=== PATIENT | male | born 1960 | race Caucasian/White ===

== ENCOUNTER 2022-07-27 11:06 | Inpatient (IN) | payer MEDICAID ==
[~2022-07-27] VITALS: Ht 180.3 cm; Wt 113.4 kg
--- NOTE | 2022-07-27 11:06 | NUR ---
Pt YENI via gurney to bed 10.
[2022-07-27 11:10] VITALS: BP 156/89
--- NOTE | 2022-07-27 11:45 | NUR ---
61M BIBA from [facility] with c/o cough for unknown time. Pt reports being Dx with PNA 7 days ago, productive cough with clear sputum. Pt taking Geritussin for cough with mild relief. Pt denies fevers, chills, SOB, CP upon assessment. Initial complaint was SOB, pt O2 96% on 2L NC. Pt changed into gown, placed on bedside monitor.
[2022-07-27 12:55] LABS: BASOPHILS % (AUTO) 0.5 % (0.0-2.0); EOSINOPHILS # (AUTO) 0.1 K/uL (0-0.4); EOSINOPHILS % (AUTO) 0.7 % (0.0-4.0); HEMATOCRIT 35.3 % (36-52); HEMOGLOBIN 11.7 g/dL (12.0-18.0); LYMPHOCYTES # (AUTO) 0.9 K/uL (2.0-11.5); LYMPHOCYTES % (AUTO) 9.1 % (20.5-51.1); MEAN CORPUSCULAR HEMOGLOBIN 27 pg (27-31); MEAN CORPUSCULAR HGB CONC 33 g/dL (33-37); MEAN CORPUSCULAR VOLUME 82.8 fL (80-94); MONOCYTES # (AUTO) 0.7 K/uL (0.8-1.0); NEUTROPHILS # (AUTO) 8.1 K/uL (1.8-7.7); NEUTROPHILS % (AUTO) 82.7 % (42.2-75.2); PLATELET COUNT (AUTO) 242 K/uL (140-450); RED BLOOD CELL COUNT(AUTO) 4.27 MIL/uL (4.20-6.10); RED CELL DISTRIBUTION WIDTH 14.2 % (11.6-13.7); WHITE BLOOD COUNT (AUTO) 9.8 K/uL (4.8-10.8)
[2022-07-27 13:12] LABS: ALBUMIN 2.4 g/dL (3.4-5.0); ANION GAP 15.1 (8-16); CARBON DIOXIDE 27.1 mmol/L (21-32); CREATININE 0.9 mg/dL (0.6-1.3); POTASSIUM 3.2 mmol/L (3.5-5.1); TOTAL BILIRUBIN 0.9 mg/dL (0.0-1.0)
[2022-07-27] MEDS ORDERED: AZITHROMYCIN 500 MG in DEXTROSE 5% 250 ML IV ONE (14:15)
[2022-07-27] MEDS ORDERED: FUROSEMIDE 40 MG/4 ML VIAL IVP SCH (14:15)
--- NOTE | 2022-07-27 14:20 | NUR ---
PER DR LACHELLE BEAR TO USE PICC/MIDLINE FROM FACILITY FOR MEDICATION
[2022-07-27] MEDS ORDERED: cefTRIAXone 1,000 MG VIAL ONE (14:30)
[2022-07-27] MEDS ORDERED: AZITHROMYCIN 500 MG INJ VIAL IV ONE (14:31)
[2022-07-27] MEDS ORDERED: MORPHINE SULFATE 2 MG/ML SYR IVP PRN (14:40)
[2022-07-27] MEDS ORDERED: MAG SULF 2000 MG/WATER PREMIX 50 ML IV PRN (14:40)
[2022-07-27] MEDS ORDERED: ZOLPIDEM 10 MG TAB PO PRN (14:40)
[2022-07-27] MEDS ORDERED: LORazepam 2 MG/ML VIAL IVP PRN (14:40)
[2022-07-27] MEDS ORDERED: DOCUSATE SODIUM 100 MG GELCAP PO PRN (14:40)
[2022-07-27] MEDS ORDERED: ONDANSETRON 4 MG/2 ML VIAL IVP PRN (14:40)
[2022-07-27] MEDS ORDERED: ACETAMINOPHEN 325 MG TAB PO PRN (14:40)
[2022-07-27] MEDS ORDERED: INSULIN LISPRO SLIDING SCALE 100 UNITS/ML VIAL SUBQ PRN (14:45)
[2022-07-27] MEDS ORDERED: DEXTROSE 50% 50 ML SYR IVP PRN (14:45)
--- NOTE | 2022-07-27 14:57 | NUR ---
DR FARMER AT BEDSIDE
[2022-07-27] MEDS: POTASSIUM CHLORIDE 10 MEQ TABER PO PRN (14:59)
[2022-07-27 16:01] LABS: APPEARANCE,URINE CLEAR (CLEAR); BILIRUBIN,URINE NEGATIVE (NEGATIVE); BLOOD, URINE TRACE-I (NEGATIVE); COLOR,URINE YELLOW (YELLOW); LEUKOCYTE ESTERASE ,URINE NEGATIVE (NEGATIVE); NITRITE, URINE NEGATIVE (NEGATIVE); UGLUCOSE NEGATIVE (NEGATIVE)
[2022-07-27 16:16] LABS: RBC,URINE 0-5 /HPF (0-5); WBC,URINE NONE SEEN /HPF (0-5)
[2022-07-27] MEDS ORDERED: DILTIAZEM 25 MG/5 ML VIAL IVP ONE (16:19)
[2022-07-27] MEDS: BLOOD GLUCOSE MONITORING 1 DEV DEV FS SCH ×2 (16:30→21:41)
[2022-07-27] MEDS ORDERED: DILTIAZEM 125 MG in DEXTROSE 5% 100 ML IV SCH (16:40)
[2022-07-27] MEDS ORDERED: DILTIAZEM 25 MG/5 ML VIAL IVP SCH (17:00)
[2022-07-27] MEDS ORDERED: RIVA15TA1 PO (17:51)
[2022-07-27] MEDS ORDERED: GABA400C PO (17:51)
[2022-07-27] MEDS ORDERED: METO25TE2 PO (17:51)
[2022-07-27] MEDS ORDERED: AMLO10TA PO (17:51)
--- NOTE | 2022-07-27 18:22 | NUR ---
Patient will be admitted to care of Dr. Quintanilla. Admited to ICU. Will go to room ICU 5. Belongings list completed. Report to SHERRI Nuno.
--- NOTE | 2022-07-27 18:30 | NUR ---
ADMISSION FROM ER TO ICU BED 5 PATIENT WAS WHEELED IN BY STRETCHER BY SHERRI RUBIO FROM ER AT 1830HRS, NO REPORT GIVEN PRIOR. CONSCIOUS, CALM, ORIENTED X4 ( PER REPORT BY JOANNE). CARDIZEM DRIP AT 10 MG/HR BY RIGHT UPPER ARM 2-LUMEN PICC. ATRIAL FIBRILLATION ON MONITOR, HR AT 148/MINUTE. 2LPM/NASAL CANNULA O2. GIVEN CARDIZEM 10 MG IVP X 1, ATIVAN 2 MG IVP X 1 IN ED. AFEBRILE. PT.CAME TO ED AT 1440 HRS. TODAY FROM [facility], BROUGHT BY AMBULANCE. Addendum: 07/27/22 at 1918 by Agency 06 SHERRI POLANCO PER SHERRI RUBIO, DR. PRICE WAS INFORMED AT 1815 HRS. THAT THE HR WAS STILL HIGH AT 100s, WILL ORDER METOPROL AND DIGOXIN, NOT IN THE EMR YET AT 1905 HRS.
[2022-07-27 18:55] VITALS: BP 134/89
[2022-07-27] MEDS ORDERED: DIGOXIN 0.25 MG/ML AMP IV SCH (19:00)
--- NOTE | 2022-07-27 19:00 | NUR ---
190: REC'D PT FROM SHERRI GARCIA TO ADMIT THE PT. PT WAS ARRIED AT THE UNIT 1830 PER REPORT. PT'S A/OX3, THIS TIME, DROWSY, AFIB HR 140'S ON CARDIZEM DRIP AT 15MG INFUSING ON THE HOLDEN PICCLINE PATENT AND INTACT.. ON 2LITERS 02 VIA NC SATS >95%. SBP 114-120'S ON DIAPER, SOILED AND SOAKING WET. TEMP 100.2, SWEATING, REMOVED ALL BLANKETS AND APPLIED COOLING MEASURES, COLD FACE CLOTH AND COLD TOWEL TO WIPE OFF THE BODY. 1919: GIVEN DUE MEDS AND TYLENOL FOR TEMP 100.2
[2022-07-27] MEDS: METOPROLOL 25 MG TAB PO SCH (19:39)
--- NOTE | 2022-07-27 19:50 | NUR ---
PHONE CALL TO DR FARMER RE; PULMO ENGROSSER CONSULT, PHYSICIAN SAID TO CONSULT DR COBURN, ALSO ORDERED TO INSERT KAYE CATHETER.JAYANT Corley RN AWARE
--- NOTE | 2022-07-27 19:54 | NUR ---
PAGED DR COBURN FOR NEW ADMISSION, SPOKE WITH MD AND SHE SAID ALREADY SAW THE PT IN ER.
[2022-07-27 20:00] VITALS: BP 140/84
[2022-07-27 21:00] VITALS: BP 108/62
[2022-07-27] MEDS ORDERED: METOPROLOL 25 MG TAB PO SCH (21:00)
[2022-07-27 22:00] VITALS: BP 106/64
[2022-07-27 23:00] VITALS: BP 93/60
[2022-07-28] VITALS (16 sets, daily range): BP systolic 92–135; BP diastolic 55–85
[2022-07-28] MEDS: METOPROLOL 25 MG TAB PO SCH ×2 (04:48→12:15)
[2022-07-28 06:11] LABS: BASOPHILS # (AUTO) 0.1 K/uL (0.00-0.22); BASOPHILS % (AUTO) 0.6 % (0.0-2.0); EOSINOPHILS # (AUTO) 0.1 K/uL (0-0.4); EOSINOPHILS % (AUTO) 1.2 % (0.0-4.0); HEMATOCRIT 36.5 % (36-52); LYMPHOCYTES # (AUTO) 1.5 K/uL (2.0-11.5); LYMPHOCYTES % (AUTO) 16.2 % (20.5-51.1); MEAN CORPUSCULAR HEMOGLOBIN 27 pg (27-31); MEAN CORPUSCULAR HGB CONC 33 g/dL (33-37); MONOCYTES # (AUTO) 0.8 K/uL (0.8-1.0); MONOCYTES % (AUTO) 8.6 % (1.7-9.3); NEUTROPHILS # (AUTO) 6.9 K/uL (1.8-7.7); NEUTROPHILS % (AUTO) 73.4 % (42.2-75.2); PLATELET COUNT (AUTO) 243 K/uL (140-450); RED CELL DISTRIBUTION WIDTH 14.8 % (11.6-13.7); WHITE BLOOD COUNT (AUTO) 9.4 K/uL (4.8-10.8)
--- NOTE | 2022-07-28 06:48 | NUR ---
NO SIGNIFICANT CHANGES FROM PREVIOUS SHIFT ASSESSMENT. A/OX4, DENIES PAIN. HAS C/O PENILE PAIN WHEN IRRIGATED. 150CC OUTPUT YELLOW COLOR. HAD GIVE 2X BATH . PT'S SWEATS A LOT, AFEBRILE. PT'S HR TO LOW 60'S, SBP LOW 100'S. LOPRESSOR WAS GIVEN PO, JC WELL, NO SWALLOWING PROBLEM. AT TIMES PT'S GETS EASILY IRRITATED DURING ACTIVITIES/TURNING AND REPOSITIONED. POC DISCUSSED. SPOKE TO PT'S BROTHER GREG AROUND 2100, UPDATES GIVEN AND TELLING THE PT TO LISTEN AND BE NICE TO STAFF. WILL ENDORSE TO AM SHERRI SIEGEL TO ASSUME PLAN OF CARE.
[2022-07-28 07:02] LABS: ANION GAP 13.1 (8-16); CARBON DIOXIDE 30.4 mmol/L (21-32); POTASSIUM 3.5 mmol/L (3.5-5.1)
[2022-07-28] MEDS: BLOOD GLUCOSE MONITORING 1 DEV DEV FS SCH ×4 (07:33→21:00)
--- NOTE | 2022-07-28 07:45 | NUR ---
Received pt alert and oriented x4. On 2L via nasal cannula. A. Fib on monitor. Abd with active bowel sounds. Arzola catheter intact and patent. PICC line on HOLDEN intact and saline locked. Received report from special effects makeup artist nurse rubio miranda off since 0000. Call light within reach. Safety precautions in place.
--- NOTE | 2022-07-28 08:36 | NUR ---
Seen and examined by Dr. Vasquez. New order to remove mcgraw catheter and downgrade to tele. Addendum: 07/28/22 at 1039 by Karime Corbett RN New order to repeat CXR.
[2022-07-28] MEDS ORDERED: lisinopriL 20 MG TAB PO SCH (09:00)
[2022-07-28] MEDS ORDERED: FUROSEMIDE 40 MG/4 ML VIAL IVP SCH (09:00)
[2022-07-28] MEDS: AZITHROMYCIN 500 MG in DEXTROSE 5% 250 ML IV SCH (09:50)
--- NOTE | 2022-07-28 10:28 | NUR ---
PATIENT HAS BEEN SCREENED AND CATEGORIZED MODERATE NUTRITION RISK. PATIENT WILL BE SEEN WITHIN 3-5 DAYS OF ADMISSION. 07/30/2212/11/[address]
--- NOTE | 2022-07-28 10:39 | NUR ---
Pt had small soft brown BM. Pericare rendered. Turned and repositioned. Pt tolerated well.
--- NOTE | 2022-07-28 11:30 | NUR ---
CXR done at bedside.
[2022-07-28] MEDS: Z-GUARD PASTE TP SCH (12:16)
--- NOTE | 2022-07-28 13:02 | NUR ---
Seen and examined by Dr. Sung. No new orders.
--- NOTE | 2022-07-28 14:05 | NUR ---
Seen and examined by Dr. Irene. No new orders.
[2022-07-28] MEDS: FUROSEMIDE 20 MG/2 ML VIAL IVP SCH (17:55)
--- NOTE | 2022-07-28 19:12 | NUR ---
Endorsed to night cleaner nurse Suad for continuity of care.
--- NOTE | 2022-07-28 19:19 | NUR ---
REC'D PT FROM SHERRI SIEGEL TO ASSUME PLAN OF CARE. PT'S A/OX4, DENIES PAIN. USES URINAL TO VOID, YELLOW CLEAR COLOR. POOR APPETITE. DINNER TRAY STILL IN FRONT OF THE PT, ASKED TO EAT MORE, BUT REFUSED. SBP IN THE LOW 100'S AFIB, CONTROLLED HR IN THE 80'S. NO RESP DISTRESS, NO COUGH AND NO SOB. ON 2 LITERS 02 VIA NC SATS >95%. POC DISCUSSED. FOR TELE TRANSFER, ROOM 106B SAFETY AND SKIN PROTOCOL ON PROGRESS. CONTINUE MONITOR.
--- NOTE | 2022-07-28 19:50 | NUR ---
1950: REPORT GIVEN TO COMMUNITY ADMINISTRATORSHERRI TOLEDO TO ASSUME PLAN OF CARE. PT TRANSFERRED BY AM FLOOR CARE TECHNICIAN LEO AND PM FLOOR CARE TECHNICIANSHERRI ESCALERA TO TELE ROOM 106B. ALL BELONGINGS WITH THE PT. NOTIFIED PT'S EMERGENCY PHYSICAL INSTRUCTOR/BROTHER GREG GAONA.
[2022-07-28] MEDS: METOPROLOL 50 MG TAB PO SCH (22:10)
--- NOTE | 2022-07-28 22:16 | NUR ---
1900: Patient is awake, alert able to follow simple command. Currently on HF cannula saturation 98. No acute respiratory distress at this time. Comfort and safety measure provided. Bed close to nursing station. 1999: Discussed with technical service specialist on patient readiness for CT with contrast. 2099: Trial patient off HF with saturation 93. 2144: RT was notified of patient status off HF. [place] applied patient saturation currently at 97, no acute distress. 2224: Attempts made my several RN to established secure upper arm IV access for CT angio. Addendum: 07/28/22 at 2222 by Agency Nurse 17, RN RN DOC. ERROR, PLEASE DISREGUARD THIS NOTE
--- NOTE | 2022-07-28 22:25 | NUR ---
1939: Report received via telephone from Suad POLANCO 1999: Patient arrived on unit. Patient A/O x4 able to follow command, no acute distress noted. Patient deny pain or discomfort. Patient belonging included a cell, phone, charging cable and article of clothing. Patient report all belonging are accounted for. Right upper arm PICC intact and patent. Educate patient on plan of care and use of call light, patient verbalized understanding.
[2022-07-29] MEDS: Z-GUARD PASTE TP SCH ×2 (01:28→13:32)
[2022-07-29 04:00] VITALS: BP 135/88
[2022-07-29] MEDS: BLOOD GLUCOSE MONITORING 1 DEV DEV FS SCH ×4 (06:37→20:57)
[2022-07-29 07:49] LABS: BASOPHILS % (AUTO) 0.5 % (0.0-2.0); EOSINOPHILS # (AUTO) 0.2 K/uL (0-0.4); EOSINOPHILS % (AUTO) 1.9 % (0.0-4.0); HEMATOCRIT 37.4 % (36-52); HEMOGLOBIN 12.5 g/dL (12.0-18.0); LYMPHOCYTES # (AUTO) 1.2 K/uL (2.0-11.5); MEAN CORPUSCULAR HEMOGLOBIN 28 pg (27-31); MEAN CORPUSCULAR HGB CONC 33 g/dL (33-37); MEAN CORPUSCULAR VOLUME 82.6 fL (80-94); MONOCYTES # (AUTO) 0.6 K/uL (0.8-1.0); MONOCYTES % (AUTO) 7.1 % (1.7-9.3); NEUTROPHILS # (AUTO) 6.7 K/uL (1.8-7.7); NEUTROPHILS % (AUTO) 76.5 % (42.2-75.2); PLATELET COUNT (AUTO) 253 K/uL (140-450); RED BLOOD CELL COUNT(AUTO) 4.53 MIL/uL (4.20-6.10); RED CELL DISTRIBUTION WIDTH 14.7 % (11.6-13.7); WHITE BLOOD COUNT (AUTO) 8.8 K/uL (4.8-10.8)
[2022-07-29 08:00] VITALS: BP 147/89
[2022-07-29 08:10] LABS: ANION GAP 15.7 (8-16); CARBON DIOXIDE 28.5 mmol/L (21-32); POTASSIUM 3.2 mmol/L (3.5-5.1)
[2022-07-29] MEDS: METOPROLOL 50 MG TAB PO SCH ×2 (09:57→20:52)
[2022-07-29] MEDS: RIVAROXABAN 10 MG TAB PO SCH (09:57)
[2022-07-29] MEDS: FUROSEMIDE 20 MG/2 ML VIAL IVP SCH ×2 (09:58→17:00)
[2022-07-29] MEDS: AZITHROMYCIN 500 MG in DEXTROSE 5% 250 ML IV SCH (09:59)
[2022-07-29] MEDS: POTASSIUM CHLORIDE 10 MEQ TABER PO PRN (10:02)
[2022-07-29 12:00] VITALS: BP 151/89
--- NOTE | 2022-07-29 14:20 | NUR ---
PT. WITH LOW JOSLYN SCALE AT MODERATE TO HIGH RISK, CONTINUE TO FOLLOW PRESSURE INJURY PREVENTION INTERVENTIONS. -POSITIONING: TURN AND REPOSITION PATIENT Q 2H OR SOONER USE PILLOWS TO KEEP BONY PROMINENCES FROM DIRECT CONTACT WITH SURFACES USE REPOSITIONING WEDGES TO PROVIDE 30-DEGREE ANGLE FOR SIDE LYING POSITIONS OFFLOADING OR FOAM DRESSING TO ALL TUBING TO PREVENT MEDICAL DEVICES RELATED PRESSURE INJURY -RE-EVALUATING AND MANAGING INCONTINENCE MONITOR SKIN CONDITION DURING POSITION CHANGE DO NOT MASSAGE REDNESS, BONY PROMINENCES FREQUENT JAKI-CARE AND PROVIDE BARRIER CREAMS PRN IF SOILING MOISTURE CONTROL BY OFFER BED WILEY/URINAL /ABSORBENT PAD TO WICK AND HOLD MOISTURE KEEP SKIN DRY AND PROTECT FROM FRICTION -MANAGE FRICTION/SHEAR/MOBILITY KEEP HOB AT THE LOWEST LEVEL OF ELEVATION NO MORE THAN 30 DEGREE UNLESS OTHERWISE CONTRAINDICATED USE LIFT SHEET OR TRANSFER DEVICE TO MOVE PATIENT AND PREVENT LATERAL SHEER. PROTECT HEELS, ELBOWS BONY PROMINENCES WITH SKIN BERRIES OR FOAM DRESSING IF EXPOSED TO FRICTION OFFLOAD BILATERAL HEELS BY PLACING PILLOWS UNDER CALVES AT ALL TIMES, UNLESS OTHERWISE CONTRAINDICATED -PRESSURE REDISTRIBUTION SURFACE THERAPY ORI ISOFLEX MATTRESS -NUTRITION: PLEASE FOLLOW RD RECOMMENDATIONS AND OFFER NUTRITION SUPPLEMENTS IF ORDERED. PLEASE CONTACT WOUND CARE NURSE FOR ANY QUESTION AND CHANGE OF WOUND CONDITION
--- NOTE | 2022-07-29 14:44 | NUR ---
DC PLANNING SW MET WITH PT AT BEDSIDE TO COMPLETE ASSESSMENT. PT REPORTS CURRENTLY BEING WITH [facility] UNDER SKILLED CARE SINCE 07/07/22. PT REPORTS HE WAS RECEIVING ANTIBIOTICS AND PT AT FACILITY. PT REPORTS PREVIOUS TO SKILLED CARE RESIDING AT [facility] IN [place]. PT IDENTIFIED GREG GAONA, BROTHER, EMERGENCY CONTACT. PT DENIED AD IN PLACE AND DECLINED AD OFFERED BY SW. PT REPORTS MEDICATION COMPLIANCE AND REPORTS THAT MEDIATION IS ADMINISTERED BY [facility] STAFF. PT REPORTS UTILIZING FWW AND REQUIRES ASSISTANCE WITH ADL'S, HOWEVER, PT REPORTS AT BASELINE HE CAN COMPLETE ADL'S INDEPENDENTLY. PT REPORTS DC PLAN IS TO RETURN TO [facility] ONCE MEDICALLY STABLE. SW INQUIRED ON RESOURCES NEEDED, PT DECLINED. Addendum: 07/29/22 at 1445 by Ayden Oliva Amended: Links added.
[2022-07-29 16:00] VITALS: BP 143/95
[2022-07-29 20:00] VITALS: BP 138/76
--- NOTE | 2022-07-29 20:07 | NUR ---
ENDORSE PATIENT TO PM SHIFT NURSE WHILE PATIENT REST IN BED STABLE, PICC HOLDEN SALINE LOCK
--- NOTE | 2022-07-29 20:08 | NUR ---
RECEIVED REPORT FROM MORNING SHIFT NURSE. PT IS AOX4, LYING ON THE BED ON BED REST. PT IS ABLE TO VERBALIZE NEEDS AND FOLLOW COMMANDS. PT IS ON REGULAR DIET AND ON ROOM AIR. PT HAS URINAL ON BEDSIDE. PT HAS RIGHT UPPER ARM PICC LINE DOUBLE LUMEN ON SALINE LOCKED. PT HAS INCONTINENT DERMATITIS ON BUTTOCKS, PERINEAL, SCROTAL AND GROIN. PT DENIES PAIN AT THIS TIME AND NO S/S RESPIRATORY DISTRESS NOTED. ALL SAFETY MEASURES IMPLEMENTED. BED IN LOW POSITION, BED WHEELS ON LOCKED AND CALL LIGHT WITHIN REACH.
--- NOTE | 2022-07-29 20:52 | NUR ---
SCHEDULED AND PRESCRIBED MEDICATION WAS GIVEN TO PT. ALL SAFETY MEASURES IMPLEMENTED. BED IN LOW POSITION, BED WHEELS ON LOCKED AND CALL LIGHT WITHIN REACH.
--- NOTE | 2022-07-29 20:57 | NUR ---
BLOOD GLUCOSE OF PT IS 131. NO INSULIN COVERAGE NEEDED.
[2022-07-30] VITALS: BP 141/90
--- NOTE | 2022-07-30 | NUR ---
PT IS SLEEPING. CHEST RISE AND FALL SYMMETRICALLY NOTED. RESPIRATION IS EVEN AND UNLABORED. ALL SAFETY MEASURES IMPLEMENTED. BED IN LOW POSITION, BED WHEELS ON LOCKED AND CALL LIGHT WITHIN REACH.
[2022-07-30] MEDS: Z-GUARD PASTE TP SCH ×2 (01:00→13:00)
--- NOTE | 2022-07-30 02:00 | NUR ---
PT TOLD ME TO DO THE MRSA SWAB LATER IN THE MORNING BECAUSE HE WANTS TO SLEEP.
[2022-07-30 04:00] VITALS: BP 140/85
--- NOTE | 2022-07-30 04:00 | NUR ---
MORNING CARE TO PT WAS DONE. CHANGED LINENS, CHUCKS AND GOWN. ALL SAFETY MEASURES IMPLEMENTED. BED IN LOW POSITION, BED WHEELS ON LOCKED AND CALL LIGHT WITHIN REACH.
[2022-07-30] MEDS: BLOOD GLUCOSE MONITORING 1 DEV DEV FS SCH ×4 (06:36→21:10)
--- NOTE | 2022-07-30 06:36 | NUR ---
PT BLOOD GLUCOSE IS 125. NO INSULIN COVERAGE NEEDED.
--- NOTE | 2022-07-30 07:18 | NUR ---
PT IS STABLE. ENDORSED PT TO MORNING SHIFT NURSE FOR CONTINUITY OF CARE.
[2022-07-30 07:47] LABS: BASOPHILS % (AUTO) 0.8 % (0.0-2.0); EOSINOPHILS # (AUTO) 0.1 K/uL (0-0.4); HEMATOCRIT 39.5 % (36-52); HEMOGLOBIN 13.1 g/dL (12.0-18.0); LYMPHOCYTES # (AUTO) 1.7 K/uL (2.0-11.5); LYMPHOCYTES % (AUTO) 29.8 % (20.5-51.1); MEAN CORPUSCULAR HEMOGLOBIN 28 pg (27-31); MEAN CORPUSCULAR HGB CONC 33 g/dL (33-37); MEAN CORPUSCULAR VOLUME 82.8 fL (80-94); MONOCYTES # (AUTO) 0.6 K/uL (0.8-1.0); MONOCYTES % (AUTO) 9.6 % (1.7-9.3); NEUTROPHILS # (AUTO) 3.4 K/uL (1.8-7.7); NEUTROPHILS % (AUTO) 58.8 % (42.2-75.2); PLATELET COUNT (AUTO) 279 K/uL (140-450); RED BLOOD CELL COUNT(AUTO) 4.77 MIL/uL (4.20-6.10); RED CELL DISTRIBUTION WIDTH 14.4 % (11.6-13.7); WHITE BLOOD COUNT (AUTO) 5.8 K/uL (4.8-10.8)
[2022-07-30 08:00] VITALS: BP 145/94
[2022-07-30] MEDS: AZITHROMYCIN 500 MG in DEXTROSE 5% 250 ML IV SCH (08:32)
[2022-07-30 08:53] LABS: ANION GAP 16.5 (8-16); CARBON DIOXIDE 29.2 mmol/L (21-32); POTASSIUM 3.7 mmol/L (3.5-5.1)
[2022-07-30] MEDS: RIVAROXABAN 10 MG TAB PO SCH (09:38)
[2022-07-30] MEDS: METOPROLOL 50 MG TAB PO SCH ×2 (09:39→21:10)
[2022-07-30] MEDS: FUROSEMIDE 20 MG/2 ML VIAL IVP SCH ×2 (09:39→16:59)
[2022-07-30 12:00] VITALS: BP 134/88
[2022-07-30] MEDS ORDERED: XAR10 PO (13:59)
[2022-07-30] MEDS ORDERED: FURO-570 PO (13:59)
[2022-07-30] MEDS ORDERED: METO50TA99 PO (13:59)
[2022-07-30] MEDS ORDERED: POTA10TA70 PO (14:00)
--- NOTE | 2022-07-30 14:42 | NUR ---
DC PLANNING: RECEIVED DC ORDER. ORDER AND CLINICALS SENT TO [place]. UBALDO PENA OF [facility] [phone], INFORMED OF DC ORDER AND REQUESTED FOR TRANSPORT AUTHORIZATION. IHSAN PENA PROVIDED THIS CM WITH TRANSPORT AUTH [id number] AND CAN US HELPING HAND, SECURE OR DL TRANSPORTATION. PER AMADO OF [place] [phone], THEY ARE IN THE PROCESS OF ROOM CHANGES DUE TO THEY HAVE FLU AND COVID OUTBREAK. PER AMADO, SHE WILL INFORM UBALDO MCNEILL ONCE BED IS AVAILABLE. UBALDO MCNEILL INFORMED.
[2022-07-30 16:00] VITALS: BP 143/95
--- NOTE | 2022-07-30 19:35 | NUR ---
RECEIVED REPORT FROM ORTEGA POLANCO, PATIENT WAS STABLE DURING SHIFT REPORT. PATIENT IS ALERT ORIENT X 4. AWARE OF DISCHARGE ORDERS AND WILL LEAVE TO [facility] WHEN A BED IS AVAILABLE. PATIENT WAS DOWNGRADED TO MED/SURG AND NURSING WILL ENSURE THE TELEMONITOR BE RETURNED TO TEACHER'S AIDE. PATIENT WAS KEPT CLEAN AND DRY. IT WAS REPORTED HE HAD A BOWEL MOVEMENT TODAY. PATIENT HAS IV FLUID TO KEEP THE VEIN OPEN. BED AT THE LOWEST LEVEL TO PREVENT FALL. SIDE RAILS UP X 2 FOR SAFETY AND ADJUSTMENT. CALL LIGHT WITHIN REACH FOR ASSISTANCE. [email or web address]
[2022-07-30 20:00] VITALS: BP 135/79
--- NOTE | 2022-07-30 23:06 | NUR ---
PATIENT IN BED WATCHING TV. NON NOTED S/S OF PAIN/DISCOMFORT. PATIENT DENIES ANY RESPIRATORY DISTRESS. KEPT CLEAN AND DRY. SIDE RAILS UP X 3 FOR SAFETY AND ADJUSTMENTS. CALL LIGHT WITHIN REACH. [email or web address]
[2022-07-31] MEDS: Z-GUARD PASTE TP SCH ×2 (01:05→13:05)
--- NOTE | 2022-07-31 01:16 | NUR ---
PATIENT IS IN BED ASLEEP. NO NOTED S/S OF PAIN/DISCOMFORT. NO NOTED RESPIRATORY DISTRESS. SIDE RAILS UP X 3 FOR SAFETY. CALL LIGHT WAS WITHIN REACT. [email or web address]
[2022-07-31 04:00] VITALS: BP 119/77
--- NOTE | 2022-07-31 05:09 | NUR ---
PATIENT WAS SLEEPING BUT WAS RESPOPNSIVE TO NAME. PATIENT DID NOT URINE MUCH, 200ML ALL NIGHT. NURSING HAVE EDUCATION TO DRINK WATER TOLERATED. URINE NOTED A YELLOWISH BROWN WITHOUT SENTIMENTS. PATIENT STATED HE DIS NOT HAVE A BOWEL MOVEMENT AND REFUSED FOR NURSE TO CHANGE HIM AT THIS TIME. HE WILL CALL IF AND WHEN HE NEEDS TO BE CHANGED. CALL LIGHT WITHIN REACH FOR ASSISTANCE. SIDE RAILS UP X 3. [email or web address]
[2022-07-31] MEDS: BLOOD GLUCOSE MONITORING 1 DEV DEV FS SCH ×4 (06:51→20:30)
--- NOTE | 2022-07-31 06:58 | NUR ---
ENDORSED PATIENT TO YUMI RN, PATIENT WAS STABLE DURING SHIFT REPORT. [email or web address]
[2022-07-31 07:15] LABS: BASOPHILS # (AUTO) 0.1 K/uL (0.00-0.22); BASOPHILS % (AUTO) 1.1 % (0.0-2.0); EOSINOPHILS # (AUTO) 0.1 K/uL (0-0.4); EOSINOPHILS % (AUTO) 1.2 % (0.0-4.0); HEMATOCRIT 40.5 % (36-52); HEMOGLOBIN 13.4 g/dL (12.0-18.0); LYMPHOCYTES # (AUTO) 2.1 K/uL (2.0-11.5); LYMPHOCYTES % (AUTO) 27.7 % (20.5-51.1); MEAN CORPUSCULAR HEMOGLOBIN 27 pg (27-31); MEAN CORPUSCULAR HGB CONC 33 g/dL (33-37); MEAN CORPUSCULAR VOLUME 82.6 fL (80-94); MONOCYTES # (AUTO) 0.7 K/uL (0.8-1.0); NEUTROPHILS # (AUTO) 4.6 K/uL (1.8-7.7); PLATELET COUNT (AUTO) 299 K/uL (140-450); RED CELL DISTRIBUTION WIDTH 14.4 % (11.6-13.7); WHITE BLOOD COUNT (AUTO) 7.6 K/uL (4.8-10.8)
[2022-07-31 07:55] LABS: ANION GAP 15.4 (8-16); CARBON DIOXIDE 28.7 mmol/L (21-32); POTASSIUM 3.1 mmol/L (3.5-5.1)
[2022-07-31 08:00] VITALS: BP 139/91
[2022-07-31] MEDS: AZITHROMYCIN 500 MG in DEXTROSE 5% 250 ML IV SCH (09:00)
[2022-07-31] MEDS: METOPROLOL 50 MG TAB PO SCH ×2 (09:07→20:31)
[2022-07-31] MEDS: RIVAROXABAN 10 MG TAB PO SCH (09:09)
--- NOTE | 2022-07-31 09:12 | NUR ---
SCHEDULED MEDS ADMIN. PT TOLERATED WELL.
[2022-07-31] MEDS ORDERED: POTASSIUM CHLORIDE 10 MEQ TABER PO SCH (09:13)
--- NOTE | 2022-07-31 11:32 | NUR ---
BS CHECK WAS DONE. BS AT 2OO. INFORMED PT HE WOULD NEED INSULIN COVERAGE. PT YELLED "WHY? I'VE BEEN EATING WHAT I'VE GOT. I DON'T WANT INSULIN." PT TEACHING REGARDING BS MANAGEMENT PT REFUSED.
--- NOTE | 2022-07-31 12:53 | NUR ---
07/31/22 RD INITIAL ASSESSMENT COMPLETED PLEASE REFER TO NUTRITION ASSESSMENT UNDER CARE ACTIVITY FOR ESTIMATED NUTRITIONAL NEEDS. 1. RECOMMEND [facility] 60GM DIET TOLERATED -MONITOR BLOOD GLUCOSE LEVELS 2. OFFERED ORAL SUPPLEMENTS; PT DECLINED 3. RD TO FOLLOW-UP 7 DAYS, LOW RISK [address]
[2022-07-31 16:00] VITALS: BP 132/89
--- NOTE | 2022-07-31 17:10 | NUR ---
BS CHECK DONE. BS LEVEL 107. NO COVERAGE NEEDED.
--- NOTE | 2022-07-31 19:41 | NUR ---
ENDORSED PT TO CRUSHER TENDER NURSE FOR CONTINUITY OF CARE. ALL NEEDS MET THROUGHOUT SHIFT. PT IN STABLE CONDITION.
[2022-07-31 20:00] VITALS: BP 136/81
--- NOTE | 2022-07-31 20:22 | NUR ---
GET THE REPORT FROM MORNING NURSE, PATIENT IS LYING ON BED, PATIENT IS ALERT ORIENTED X4, ALL FALL PRECAUTION MEASURE ARE IN PLACE, CALL LIGHT IS WITHIN THE REACH, WILL CONTINUE TO MONITOR PATIENT.
--- NOTE | 2022-07-31 20:23 | NUR ---
PATIENT IS LYING ON BED, NO ANY COMPLAIN OF PAIN OR SHORTNESS OF BREATH AT THIS TIME, VITAL SIGN IS WITHIN THE NORMAL RANGE, PATIENT REFUSED TO CHECK BLOOD SUGAR AT THIS TIME, ALL OTHER MEDICATION IS GIVEN PER DOCTOR ORDER, CALL LIGHT IS WITHIN THE REACH, WILL CONTINUE TO MONITOR PATIENT.
--- NOTE | 2022-08-01 00:18 | NUR ---
PATIENT IS LYING ON BED, HELP THE PATIENT TO USE BEDSIDE COMMODE, NO ANY COMPLAIN OF PAIN OR SHORTNESS OF BREATH AT THIS TIME, CALL LIGHT IS WITHIN THE REACH, WILL CONTINUE TO MONITOR PATIENT.
[2022-08-01] MEDS: Z-GUARD PASTE TP SCH (01:07)
[2022-08-01 04:00] VITALS: BP 119/75
--- NOTE | 2022-08-01 04:20 | NUR ---
PATIENT IS LYING ON BED, NO ANY COMPLAIN OF PAIN OR SHORTNESS OF BREATH AT THIS TIME, VITAL SIGN IS WITHIN THE NORMAL RANGE,CALL LIGHT IS WITHIN THE REACH, WILL CONTINUE TO MONITOR PATIENT.
[2022-08-01] MEDS: BLOOD GLUCOSE MONITORING 1 DEV DEV FS SCH (06:31)
--- NOTE | 2022-08-01 07:01 | NUR ---
PATIENT IS REFUSING TO CHECK BLOOD SUGAR AT THIS TIME,.
--- NOTE | 2022-08-01 07:02 | NUR ---
GAVE THE REPORT TO MORNING NURSE FOR CONTINUOS OF CARE, PATIENT IS STABLE.
[2022-08-01 07:06] LABS: ANION GAP 12.1 (8-16); CREATININE 1.2 mg/dL (0.6-1.3); POTASSIUM 4.1 mmol/L (3.5-5.1)
[2022-08-01 08:03] LABS: BASOPHILS # (AUTO) 0.1 K/uL (0.00-0.22); BASOPHILS % (AUTO) 1.1 % (0.0-2.0); EOSINOPHILS # (AUTO) 0.1 K/uL (0-0.4); EOSINOPHILS % (AUTO) 1.3 % (0.0-4.0); HEMATOCRIT 43.8 % (36-52); HEMOGLOBIN 14.2 g/dL (12.0-18.0); LYMPHOCYTES # (AUTO) 1.8 K/uL (2.0-11.5); MEAN CORPUSCULAR HEMOGLOBIN 27 pg (27-31); MEAN CORPUSCULAR HGB CONC 32 g/dL (33-37); MEAN CORPUSCULAR VOLUME 84.5 fL (80-94); MONOCYTES # (AUTO) 0.6 K/uL (0.8-1.0); MONOCYTES % (AUTO) 8.5 % (1.7-9.3); NEUTROPHILS # (AUTO) 5.1 K/uL (1.8-7.7); NEUTROPHILS % (AUTO) 66.1 % (42.2-75.2); PLATELET COUNT (AUTO) 248 K/uL (140-450); RED BLOOD CELL COUNT(AUTO) 5.19 MIL/uL (4.20-6.10); RED CELL DISTRIBUTION WIDTH 14.7 % (11.6-13.7); WHITE BLOOD COUNT (AUTO) 7.7 K/uL (4.8-10.8)
[2022-08-01] MEDS: RIVAROXABAN 10 MG TAB PO SCH (08:41)
[2022-08-01] MEDS: AZITHROMYCIN 500 MG in DEXTROSE 5% 250 ML IV SCH (08:41)
[2022-08-01] MEDS: METOPROLOL 50 MG TAB PO SCH (08:41)
--- NOTE | 2022-08-01 08:58 | NUR ---
SHERRI SPOKE WITH NYA AT [facility], PATIENT DISCHARGING TODAY TO ROOM 9A, ACCEPTING MD DR MTZ. NUMBER TO CALL REPORT IS [phone]- TRANSPORT ARRANGED FOR 14OO WITH [employer] ([phone])[facility]OFIA. INFORMATION GIVEN TO PATIENTS SHERRI SHETH. Addendum: 08/01/22 at 0911 by Sushma Burciaga RN RN NUMBER TO CALL REPORT AT [facility] IS [phone] Addendum: 08/01/22 at 1010 by Sushma Burciaga RN RN RN ABLE TO REACH CONTRACTED TRANSPORT VENDOR [employer] [place] ([phone]). [employer] TIME BETWEEN [phone], PATIENTS SHERRI SHETH UPDATED ON NEW ARRANGEMENTS.
[2022-08-01] MEDS ORDERED: FUROSEMIDE 40 MG TAB PO SCH (09:00)
--- NOTE | 2022-08-01 10:16 | NUR ---
P.T. NOTES P.T. EVAL COMPLETED; REFER TO EVAL FOR DETAILS.
--- NOTE | 2022-08-01 10:50 | NUR ---
Called [facility] and gave report to RN. Let her know they were coming to pick him up around 1pm.
== END 2022-08-01 13:00 | disposition home or self-care (01) | DRG 139 ==
LOC: MED 11:06 → MIC 14:40 → MTU 14:40 → MIC 17:36 → MTU 07-28 19:30
PROVIDERS: ADMIT Family Medicine; ATTEND Family Medicine
PROC: 05HY33Z Insertion of Infusion Device into Upper Vein, Percutaneous Approach (ICD-10-PCS; principal; 2022-07-27)
DX: J18.9 Pneumonia, unspecified organism (principal); I50.33 Acute on chronic diastolic (congestive) heart failure; E43 Unspecified severe protein-calorie malnutrition; D64.9 Anemia, unspecified; E87.6 Hypokalemia; E11.9 Type 2 diabetes mellitus without complications; I48.91 Unspecified atrial fibrillation; I11.0 Hypertensive heart disease with heart failure; Z20.822 Contact with and (suspected) exposure to COVID-19; R06.03 Acute respiratory distress; R06.00 Dyspnea, unspecified; Z68.34 Body mass index [BMI] 34.0-34.9, adult
CPT/HCPCS: 36415; 71045; 80048; 80053; 81001; 82803; 82948; 83605; 83735; 83880; 84484; 85025; 87040; 87081; 87086; 93005; 96365; 96367; 96375; 99285; J0456; J0696; J1160; J1815; J1940; J2060; J2405; J3490; J7060; Q0092